=== PATIENT | male | born 1995 | race Two or more races ===

== ENCOUNTER 2019-11-10 16:44 | Emergency (ER) | payer OTHER ==
[~2019-11-10] VITALS: Ht 170.2 cm; Wt 86.2 kg
[2019-11-10 16:57] VITALS: BP 138/86
[2019-11-10] MEDS ORDERED: EPINEPHrine HCL 1 MG/1 ML AMP SC ONE (18:00)
[2019-11-10] MEDS ORDERED: diphenhdrAMINE HCL 50 MG/1 ML VL IM ONE (18:00)
== END 2019-11-10 18:19 | disposition home or self-care (01) ==
LOC: ER 16:55
DX: T78.40XA Allergy, unspecified, initial encounter (principal); X58.XXXA Exposure to other specified factors, initial encounter
CPT/HCPCS: 96372; 99283; J0171; J1200